=== PATIENT | male | born 1925 | race Caucasian/White ===

== ENCOUNTER 2016-08-15 23:41 | Emergency (ER) | payer MEDICARE, BC ==
[~2016-08-15 23:41] MED LIST: ASMANEX TW0.22 MG/A1 IH; CEFDINIR300 MG PO; CENTRUM SILVER1 TA1 PO; CHILDREN'S ASPI81 M1 PO; CLARITIN 10MG T10 MG PO; FLUNISOLID0.025 MG/A NS; FOLIC ACID800 MCG PO; FORADIL INHAL144 MCG IH; GARLIC1000 MG PO; LISINOPRIL40 MG PO; METOPROLOL SUC100 MG PO; MIRALAX17 GM PO; MUCINEX 60600 MG/TA1 PO; OMEGA-3 FISH O1 EAC3 PO; OMEGA-3 FISH1200 MG PO; PENTOXIFYL XR400 MG; PENTOXIFYLLINE400 MG PO; PREDNISONE10 M1 PO; SPIRIVA INH IH; TYLENOL EXTRA500 M1 PO; VIBRAMYCIN100 MG PO; ZOCOR40 MG PO
[2016-08-16 02:19] VITALS: BP 175/72
[2016-08-16 02:22] VITALS: BP 175/72
[2016-08-16 06:11] VITALS: BP 138/69
[2016-08-16 10:18] VITALS: BP 187/98
[2016-08-16 14:09] VITALS: BP 165/91
[2016-08-16 18:03] VITALS: BP 171/96
[2016-08-17] MEDS ORDERED: LOPRESSOR 550 MG/TAB PO (09:23)
== END 2016-08-16 02:00 | disposition other institution (70) ==
LOC: ED 23:41
DX: K56.7 Ileus, unspecified (principal); J44.9 Chronic obstructive pulmonary disease, unspecified; J45.909 Unspecified asthma, uncomplicated
CPT/HCPCS: J0595; J1885; J2765; J7030; J7050

== ENCOUNTER 2016-08-16 02:05 | Inpatient (IN) | payer MEDICARE ==
[2016-08-16] VITALS (8 sets, daily range): BP systolic 138–187; BP diastolic 69–98
[2016-08-17 06:31] VITALS: BP 141/73
[2016-08-17] MEDS ORDERED: LOPRESSOR 550 MG/TAB PO (09:23)
[2016-08-17 11:13] VITALS: BP 106/59
[2016-08-17 15:27] VITALS: BP 95/63
[2016-08-17 18:01] VITALS: BP 100/64
[2016-08-27 02:22] VITALS: BP 175/72
[2016-08-27 06:11] VITALS: BP 138/69
== END 2016-08-17 18:41 | disposition expired | DRG 393 ==
LOC: MED/SURG 02:05
PROVIDERS: ADMIT Family Medicine
DX: K55.9 Vascular disorder of intestine, unspecified (principal); A41.9 Sepsis, unspecified organism; Q43.3 Congenital malformations of intestinal fixation; R18.8 Other ascites; Z66 Do not resuscitate; Z51.5 Encounter for palliative care; J44.9 Chronic obstructive pulmonary disease, unspecified; K82.8 Other specified diseases of gallbladder; K59.00 Constipation, unspecified; K40.90 Unilateral inguinal hernia, without obstruction or gangrene, not specified as recurrent; I10 Essential (primary) hypertension; I25.10 Atherosclerotic heart disease of native coronary artery without angina pectoris; E78.5 Hyperlipidemia, unspecified; R09.81 Nasal congestion; Z99.81 Dependence on supplemental oxygen; Z95.1 Presence of aortocoronary bypass graft
CPT/HCPCS: C9113; J0595; J1650; J1885; J2270; J2405; J2765; J7030; Q9967